=== PATIENT | female | born 1985 | race Caucasian/White ===

== ENCOUNTER 2016-05-04 11:06 | Inpatient (IN) ==
[2016-05-04] MEDS ORDERED: Naloxone 0.4 MG/ML INJ IVP PRN (11:18)
[2016-05-04] MEDS ORDERED: Famotidine 20 MG/2 ML VIAL IVP PRN (11:18)
[2016-05-04] MEDS ORDERED: Metoclopramide 10 MG/2 ML VIAL IVP PRN (11:18)
[2016-05-04] MEDS ORDERED: Ondansetron 4 MG/2 ML VIAL IVP PRN (11:18)
[2016-05-04] MEDS ORDERED: Ringers Solution, Lactated 1,000 ML IVC SCH (11:30)
[2016-05-04 11:49] LABS: Basophils % 0.2 %; Eosinophils % 0.4 %; Hematocrit 41.5 % (35.3-44.9); Hemoglobin 14.2 g/dL (11.5-15.4); Immature Granulocytes % 0.4 % (0-4); Lymphocytes # 2.2 K/mcL (0.6-4.6); Lymphocytes % 19.6 %; Mean Corpuscular HGB Conc 34.2 g/dL (31.6-35.5); Mean Corpuscular Hemoglobin 31.9 pg (28.0-33.3); Mean Corpuscular Volume 93.3 fL (83.0-100.0); Mean Platelet Volume 12.3 fL (9.4-12.4); Monocytes # 0.9 K/mcL (0.0-1.3); Monocytes % 8.3 %; Neutrophils # 7.9 K/mcL (1.6-8.9); Platelet Count 185 K/mcL (140-400); Red Blood Count 4.45 M/mcL (3.82-4.97); Red Cell Distribution Width 12.4 % (11.5-14.5); Segmented Neutrophils % 71.1 %
[2016-05-04 11:59] LABS: Immature Platelets 15.4 % (1.1-6.1)
--- NOTE | 2016-05-04 12:09 | OB/GYN History & Physical ---
Date of Encounter: 05/04/16 Time of Encounter: 12:06 Assessment and Plan (1) 39 weeks gestation of Current visit: Yes Status: Acute Admit for elective IOL at 39 weeks with favorable cervix. SVE /-1 per MD in office. GBS negative. Plan for Pitocin induction. AROM when able. Epidural if requested. Anticipate . History of Present Illness Chief complaint: IOL HPI: Ms. Wright is a 30 year old female presenting at 39 weeks gestation for elective IOL. She reports good FM and denies complaints at this time. Her has been uncomplicated. Bloody type O negative. Rubella immune. Serologies and GBS negative. Past Med Surg Social Fam HX - Past Medical History Medical history: no medical history Psychiatric history: no psych history - Social History Smoking Status: Never smoker Smokeless Tobacco Status: No Alcohol use: none Drug use: none - Family History Mother Family Member Ethnicity: Non- Living Status: Still Living Hx Family Cardiac Disorders: Yes (HTN) Obstetrical History - Pregnancies : 5 Medications and Allergies Acetaminophen [Tylenol] 325 mg PO PRN PRN 07/02/15 [History] Buspirone HCl [Buspar] 05/04/16 [History] Promethazine 05/04/16 [History] SUMAtriptan [Imitrex] 05/04/16 [History] Allergies hydrocodone [From Vicodin] Allergy (Verified 05/04/16 11:54) Rash Review of System OB All systems PM: reviewed and no additional remarkable complaints except as stated Exam - Constitutional Constitutional: well developed, well nourished, no acute distress - HEENT HEENT: Mucus Membranes Moist - Neck Neck exam: normal inspection - Lungs Respiratory exam: CTAB - Cardiovascular Cardiovascular exam: RRR, +S1, +S2 - Abdomen Abdomen: Present: gravid, non tender - Extremities Extremities exam: normal inspection - Vulva Vulva: bilateral: normal - Vagina Vagina: Present: normal moisture - Cervix Dilation: 3 (per MD) Effacement: 90 Station: -1 - Uterus Uterus exam: Present: normal size (EFW by alecia 7lbs) - Anus/Rectum Anus/Rectum: Present: normal perianal skin Results Result Diagrams: 05/04/16 11:30 Abnormal lab results WBC 11.2 K/mcL (4.3-11.1) H 05/04/16 11:30 Immature Plt Fraction 15.4 % (1.1-6.1) H 05/04/16 11:30 All other labs normal. - VTE Reasons for not Prescribing Prophylaxis: Treatment not Indicated - Low risk for VTE
[2016-05-04] MEDS ORDERED: miSOPROStol 25 MCG TABLET VG SCH ×2 (13:15→16:00)
--- NOTE | 2016-05-04 14:58 | Anesthesia Evaluation PreOp ---
Date of Encounter: 05/04/16 Time of Encounter: 14:56 - Past History Planned Operation: niall Cardiac History: Denies any Significant Hx Pulmonary History: Denies Any Significant HX PEN TENDER History: Denies Any Significant HX Other Medical History: GERD (ranitidine), Other (migraines) Anesthesia History: No Prior Anesthetic Complications, Past Anesthesia (d&c, t&a ) : Yes (39 wks, ) Alcohol Use: none Drug use: none Medications and Allergies Acetaminophen [Tylenol] 325 mg PO PRN PRN 07/02/15 [History] Buspirone HCl [Buspar] 05/04/16 [History] Promethazine 05/04/16 [History] SUMAtriptan [Imitrex] 05/04/16 [History] Allergies hydrocodone [From Vicodin] Allergy (Verified 05/04/16 11:54) Rash - Meds/Allergy Pre-op Review Medications Reviewed: Yes Allergies Reviewed: Yes Beta Blockers on Current Med List: No Anesthesia Results - Labs 05/04/16 11:30 Anesthesia Exam O2 Sat Height 1.63 m Weight 72.8 kg Height: 64 Weight: 72 - HEENT Pupil (Motor): Pupils equal Mallampati: II Teeth: Normal Oral Opening: Greater than 3 - PEN TENDER PEN TENDER Motor: Normal RUE, Normal LUE, Normal RLE, Normal LLE, Normal Face PEN TENDER Sensory: Normal: RUE, LUE, RLE, LLE, Face - Cardiac Rhythm: Regular Murmur: None JVD: No Carotid Bruit: No - Pulmonary Breath Sounds: bilateral Clear Respiratory Effort: Symmetrical Anesthesia Assess/Plan ASA Score: 2 Modified [place] Scale for Level of Consciousness: Cooperative, oriented, and tranquil Anesthetic Plan: Regional Monitoring Plan: Standard Monitors
[2016-05-04] MEDS ORDERED: *HR* FentaNYL (PF) 100 MCG/2 ML VIAL ONE (19:35)
[2016-05-04] MEDS ORDERED: Bupivacaine-MPF 0.25% 10 ML VIAL ONE (19:35)
[2016-05-04] MEDS ORDERED: Epidural Premix (fent/bupiv) 110 ML EP ONE (19:35)
[2016-05-04] MEDS ORDERED: Oxytocin 20 units/ LR 1000 mL 20 UNIT/1,000 ML BAG IVC ONE ×2 (20:29→23:59)
--- NOTE | 2016-05-04 20:52 | Anesthesia Procedures ---
Date of Encounter: 05/04/16 Time of Encounter: 19:36 Procedures: Anesthesia - Epidural/Spinal Patient ID/Chart reviewed: Yes Patient examined: Yes OB Eval: Gestational age: 39 OB Eval: : 5 OB Eval: Hx Para: 2 OB Eval: Dilated at (cm): 4 OB Eval: Contractions: Non-stressed pattern Consent Obtained: Yes Supplemental Oxygen: None/Room Air Site Prep: Aseptic Technique, 0.5% Chlorhexidine/Alcohol Patient position: upright Local Anesthetic: Lidocaine 1% Amount of Local Anesthetic used: 3 Touhy Needle Gauge: 18 Touhy Needle Depth (cm): 4 Catheter Depth at Skin (cm): 10 Test Dose (1.5% Lido + Epi): Volume given (mls): 3 Test Dose Result: Negative Loading Dose: 0.25% Marcaine (mls): 6 Loading Dose: Fentanyl (mcg): 100 Loading Dose: Other: 3ml nss Loading Dose Administered: Thru Touhy Needle Infusion Med: 0.125% Bupivacaine w/ 2 mcg/ml Fentanyl Infusion Rate (mls/hr): [address]: Tegaderm Interspace Used: L3-L4 Loss of Resistance (LUIS M): Yes Blood: No CSF: No Paresthesia: No
--- NOTE | 2016-05-04 20:55 | OB/GYN Procedure Note ---
Delivery - Delivery Date: 05/04/16 Provider: Clayton Donis Intrapartum events: none Delivery induction: misoprostol Delivery augmentation: rupture of membranes Delivery monitor: external FHT Anesthesia: epidural Estimated Blood Loss: 150 - (s) Infant A Infant Delivery Date: 05/04/16 Infant Delivery Time: 20:32 Presentation: vertex Position: CHAIM Route of delivery: Gender: Female Viability: Viable Pounds: 6 Ounces: 7 at 1 minute: 8 at 5 mins: 9 Specimens collected: cord blood Placenta: spontaneous, other (Accessory lobe noted) Cord: 3 umbilical vessels - Repair Episiotomy: none Laceration Description: None - Complications Delivery complications: none - Disposition Mom disposition: stable in LDR [place] disposition: stable in LDR - Comments Comments: Patient is status post normal spontaneous vaginal delivery of liveborn female over intact perineum without incident. Spontaneous delivery of the placenta which had an accessory lobe and three-vessel cord.Perineum was intact.
[2016-05-04] MEDS ORDERED: Acetaminophen 325 MG TABLET PO PRN (23:59)
[2016-05-04] MEDS ORDERED: Measles/Mumps/Rubella Vacc 0.5 ML VIAL SQ PRN (23:59)
[2016-05-04] MEDS ORDERED: Rho Immune Globulin 1,500 UNIT SYRINGE IM PRN (23:59)
[2016-05-04] MEDS ORDERED: Oxytocin 20 units/ LR 1000 mL 20 UNIT/1,000 ML BAG IV SCH (23:59)
[2016-05-05] MEDS: Ibuprofen 600 MG TABLET PO PRN ×2 (07:18→20:02)
--- NOTE | 2016-05-05 08:08 | OB/GYN Progress Note ---
Date of Encounter: 05/05/16 Time of Encounter: 08:00 - Assessment and Plan (1) 39 weeks gestation of Current Visit: Yes Status: Resolved cont diet, cont ambulation, cont current pain regimen, cont current inpt care, possible discharge today Subjective - Subjective Patient reports: appetite normal, voiding normally, pain well controlled, ambulating normally, other (lochia light, bottlefeeding, ) : doing well, bottle feeding Objective - Latest Vital Signs Latest vital signs: Vital Signs Temp Pulse Resp BP Pulse Ox 05/05/16 03:50 98.3 F 64 16 129/68 97 05/05/16 01:25 98.3 F 80 14 126/66 97 05/05/16 00:20 98.6 F 76 16 122/78 98 05/04/16 23:15 98.3 F 62 16 127/66 98 Intake and Output 05/04/16 05/05/16 05/05/16 23:59 07:59 15:59 Intake Total 500 / 500 Output Total 350 / 350 1100 / 1100 Balance -350 / -350 -600 / -600 Intake: Other 500 / 500 Output: Urine 1100 / 1100 Estimated Blood Loss 150 / 150 Catheter 200 / 200 Other: Weight 72 kg 72.5 kg Patient Weight 05/05/16 23:59 Weight 72.5 kg - Exam Lungs: bilateral: normal Chest: Normal S1, Normal S2 Extremities: Present: normal Abdomen: Present: normal appearance, soft Uterus: Present: normal Uterus Position: 1 Finger Below Umbilicus - Labs Labs: Laboratory Results - last 24 hr 05/04/16 11:30 WBC 11.2 H RBC 4.45 Hgb 14.2 Hct 41.5 MCV 93.3 MCH 31.9 MCHC 34.2 RDW 12.4 Plt Count 185 MPV 12.3 Immature Gran % 0.4 Seg Neutrophils % 71.1 Lymphocytes % 19.6 Monocytes % 8.3 Eosinophils % 0.4 Basophils % 0.2 Neutrophils # 7.9 Lymphocytes # 2.2 Monocytes # 0.9 Eosinophils # 0.0 Basophils # 0.0 Immature Plt Fraction 15.4 H
[2016-05-05] MEDS: Prenatal Vit/FA 1 EACH TABLET PO SCH (09:05)
[2016-05-06] MEDS: Ibuprofen 600 MG TABLET PO PRN (06:38)
[2016-05-06] MEDS: Prenatal Vit/FA 1 EACH TABLET PO SCH (08:16)
[2016-05-06 08:48] VITALS: BP 131/78
--- NOTE | 2016-05-06 08:55 | Discharge Summary ---
Date of Encounter: 05/06/16 Time of Encounter: 08:54 - Discharge Diagnosis (1) (normal spontaneous vaginal delivery) Priority: Primary Status: Acute - Discharge Medications Prescriptions: Ibuprofen [Motrin] 600 mg PO Q6HR PRN #60 tab PRN Reason: Pain Ibuprofen [Motrin] 600 mg PO Q6HR PRN #60 tab PRN Reason: Pain Home Medications: Acetaminophen [Tylenol] 325 mg PO PRN PRN 07/02/15 [History] Buspirone HCl [Buspar] 05/04/16 [History] Promethazine 05/04/16 [History] SUMAtriptan [Imitrex] 05/04/16 [History] Ibuprofen [Motrin] 600 mg PO Q6HR PRN #60 tab 05/05/16 [Rx] Ibuprofen [Motrin] 600 mg PO Q6HR PRN #60 tab 05/05/16 [Rx] Allergies/Adverse Reactions: Allergies hydrocodone [From Vicodin] Allergy (Verified 05/04/16 11:54) Rash Data Procedures and tests throughout hospitalization: Laboratory Tests 05/04/16 05/04/16 11:30 21:00 WBC 11.2 H RBC 4.45 Hgb 14.2 Hct 41.5 MCV 93.3 MCH 31.9 MCHC 34.2 RDW 12.4 Plt Count 185 MPV 12.3 Immature Gran % 0.4 Seg Neutrophils % 71.1 Lymphocytes % 19.6 Monocytes % 8.3 Eosinophils % 0.4 Basophils % 0.2 Neutrophils # 7.9 Lymphocytes # 2.2 Monocytes # 0.9 Eosinophils # 0.0 Basophils # 0.0 Immature Plt Fraction 15.4 H Screen NEGATIVE Baby's Blood Type O RH POSITIVE Mother's Blood Type O RH NEGATIVE Rhogam Indicated YES Rhogam Req for Mother 1 Labs on day of discharge: Labs from last 24 hours 05/04/16 21:00 Screen NEGATIVE Baby's Blood Type O RH POSITIVE Mother's Blood Type O RH NEGATIVE Rhogam Indicated YES Rhogam Req for Mother 1 - Impressions Doing well without c/o, desires to be discharged home. Date of admission: 05/04/16 11:06 Primary care physician: PCP NO Consults: 05/04/16 23:59 Consult to Research Nurse Practitioner [CONS] Routine Comment: Vaginal delivery, consult needed - Patient Status Disposition: Home, Self-Care Condition: Good Functional capacity at discharge: independent ambulation Overall status at discharge: patient is progressing back to baseline - Discharge Instructions Follow Up With: Clayton Donis MD [Partnered Physician] - (June 08, 2016 @ 1:00 pm) - Diet and Activity Activity: increase activity as tolerated Diet: advance to your usual diet Hospital Course [employer] Time Attestation: Total time spent providing and/or coordinating discharge services: Exam - Constitutional Vitals: Temp Pulse Resp BP Pulse Ox 97.8 F 66 17 131/78 98 05/06/16 08:47 05/06/16 08:47 05/06/16 08:47 05/06/16 08:47 05/05/16 20:00 General appearance IM: A&O X 3 - Respiratory Respiratory exam: Present: CTAB - Cardiovascular Cardiovascular exam IM: Present: RRR - GI/Abdominal GI/Abdominal exam IM: normal bowel sounds - Extremities Exam Extremities exam IM: Present: full ROM - Neurological Exam Neurological exam: oriented X3 - VTE Reasons for not Prescribing Prophylaxis: Treatment not Indicated - Low risk for VTE
== END 2016-05-06 10:23 | disposition home or self-care (01) | DRG 560 ==
LOC: 1NENULAB 11:06 → 1NENUOBS 23:19
PROVIDERS: ADMIT Obstetrics & Gynecology; ATTEND Obstetrics & Gynecology